=== PATIENT | female | born 1960 | race Caucasian/White ===

== ENCOUNTER 2019-09-11 09:59 | Emergency (ER) | payer BC ==
[~2019-09-11] VITALS: Ht 149.9 cm; Wt 44.5 kg
[2019-09-11 09:59] VITALS: BP 130/80
[~2019-09-11 09:59] MED LIST: HYDR-4383 PO
[2019-09-11] MEDS ORDERED: AMOX-422 PO (10:52)
[2019-09-11] MEDS ORDERED: AZIT-21 PO (10:52)
[2019-09-11] MEDS ORDERED: CODE120S2 PO (10:54)
--- NOTE | 2019-09-11 11:30 | NUR ---
NUMBER: [phone]
== END 2019-09-11 11:32 | disposition home or self-care (01) ==
LOC: ER 10:00
DX: J18.9 Pneumonia, unspecified organism (principal); R91.8 Other nonspecific abnormal finding of lung field; Z79.2 Long term (current) use of antibiotics; Z79.899 Other long term (current) drug therapy
CPT/HCPCS: 71046; 87502; 87503; 99284